=== PATIENT | female | born 1970 | race Caucasian/White ===

== ENCOUNTER → 2018-01-20 | Outpatient (CLI) | payer BC, OTHER | LOC: LAB 22:32 | PROVIDERS: ATTEND Surgery | DX: C50.912 Malignant neoplasm of unspecified site of left female breast (principal) | CPT/HCPCS: 88305; 88341; 88342 ==

== ENCOUNTER 2018-03-22 09:59 | Day surgery (SDC) | payer BC, OTHER ==
[2018-03-15 09:50] LABS: HEMATOCRIT 42.6 % (36.0-47.0); HEMOGLOBIN 14.4 g/dL (12.0-15.5); MEAN CORPUSCULAR HEMOGLOBIN 30.9 pg (27.0-33.4); MEAN CORPUSCULAR HGB CONC 33.8 g/dL (32.0-36.0); MEAN CORPUSCULAR VOLUME 92 fl (80-97); PLATELET COUNT 266 10^3/uL (150-450); RED BLOOD COUNT 4.65 10^6/uL (3.72-5.28); RED CELL DISTRIBUTION WIDTH 12.8 % (11.5-14.0); WHITE BLOOD COUNT 6.5 10^3/uL (4.0-10.5)
[2018-03-15 10:14] LABS: ANION GAP 10 (5-19); BLOOD UREA NITROGEN 16 mg/dL (7-20); CALCIUM 10.2 mg/dL (8.4-10.2); CARBON DIOXIDE 29 mmol/L (22-30); CHLORIDE 104 mmol/L (98-107); GLUCOSE 89 mg/dL (75-110); POTASSIUM 5.3 mmol/L (3.6-5.0); SODIUM 143.4 mmol/L (137-145)
[~2018-03-22 09:59] MED LIST: CEFAZOLIN 1 GM/D5W RTU 1 GM/50 ML RTUPB IV PRN; LACTATED RINGERS 1000 ML IV PRN; LIDOCAINE 0.5% INJ-PF (5 MG/ML) 50 ML SDV SUBCUT PRN; LIDOCAINE 4% TRANSPARENT DRESSING 5 GM KIT TP PRN
[2018-03-22] MEDS ORDERED: ONDANSETRON HCL INJ/PF 4 MG/2 ML SDV ONE (10:25)
[2018-03-22] MEDS ORDERED: KETOROLAC TROMETHAMINE 60 MG/2 ML SDV ONE (10:25)
[2018-03-22] MEDS ORDERED: LIDOCAINE 2% INJ-PF (20 MG/ML) 2 ML AMPUL ONE (10:25)
[2018-03-22] MEDS ORDERED: SUCCINYLCHOLINE CHLORIDE INJ 200 MG/10 ML VIAL ONE (10:25)
[2018-03-22] MEDS ORDERED: DEXAMETHASONE SOD PHOSPHATE INJ 4 MG/1 ML VIAL ONE (10:25)
[2018-03-22] MEDS ORDERED: LIDOCAINE 1%/EPINEPHRINE INJ 20 ML VIAL ONE (11:06)
[2018-03-22] MEDS ORDERED: METHYLENE BLUE 50 MG/10 ML AMPULE ONE (11:06)
[2018-03-22] MEDS ORDERED: MICROFIBRILLAR COLLAGEN 1 GM PACK ONE (11:06)
[2018-03-22] MEDS ORDERED: ACETAMINOPHEN 100 ML IV ONE (13:32)
[2018-03-22] MEDS ORDERED: PROPOFOL INJ 200 MG/20 ML VIAL IV ONE (13:32)
[2018-03-22] MEDS ORDERED: MIDAZOLAM 2 MG/2 ML INJ ONE (13:32)
[2018-03-22] MEDS ORDERED: FENTANYL CITRATE INJ/PF 250 MCG/5 ML AMPULE ONE (13:33)
--- NOTE | 2018-03-22 13:42 | RADIOLOGY REPORT (SQ) ---
EXAM DESCRIPTION: NM LYMPHATICS/LYMPH GLANDS COMPLETED DATE/TIME: 03/22/2018 11:47 am REASON FOR STUDY: BREAST CANCER C50.912 MALIGNANT NEOPLASM OF UNSPECIFIED SITE OF LEFT FEMAL COMPARISON: None. RADIONUCLIDE AND DOSE: 620 microcuries TC-99m tilmanocept - [employer]. The route of agent administration: Subcutaneous in the skin. TECHNIQUE: The skin of the left breast was prepped in sterile fashion. The radiopharmaceutical was administered in equally divided doses in the periareolar breast, from the 12 o'clock position to the 6 o'clock position. LIMITATIONS: None. FINDINGS: Images demonstrate activity at the injection site. There is migration of activity towards the left axilla IMPRESSION: ADMINISTRATION OF RADIOPHARMACEUTICAL FOR SENTINEL LYMPH NODE EVALUATION. TECHNICAL DOCUMENTATION: JOB ID: [id number] [employer]- All Rights Reserved Reading location - IP/workstation name: [email or web address]
[2018-03-22] MEDS ORDERED: MEPERIDINE HCL/PF INJ 25 MG/1 ML DISP.SYRIN IV PRN (14:20)
[2018-03-22] MEDS ORDERED: PROMETHAZINE HCL INJ 25 MG/1 ML VIAL IV PRN ×2 (14:20)
[2018-03-22] MEDS ORDERED: FENTANYL CITRATE INJ/PF 100 MCG/2 ML AMPUL IV PRN ×3 (14:20)
[2018-03-22] MEDS ORDERED: OXYCODONE-ACETAMINOPHEN 5-325 MG TABLET PO PRN ×2 (14:20)
[2018-03-22] MEDS ORDERED: DIPHENHYDRAMINE HCL 50 MG/ML VIAL IV PRN (14:20)
[2018-03-22] MEDS ORDERED: KETOROLAC TROMETHAMINE INJ/PF 30 MG/1 ML SDV IV PRN (15:42)
--- NOTE | 2018-03-22 15:42 | Operative Report ---
Operative Report DATE OF SURGERY: 03/22/18 PREOPERATIVE DIAGNOSIS: triple negative, poorly differentiated left breast carcinoma POSTOPERATIVE DIAGNOSIS: Same OPERATION: 1. Left mastectomy. 2. [place] lymph node biopsy 7 left axilla using dual mapping technique. 3. Drainage of left chest wall SURGEON: CARL SANDOVAL 1ST ELDERLY COMPANION: ADDIE WISEMAN ANESTHESIA: GA TISSUE REMOVED OR ALTERED: Left breast; sentinel lymph nodes left axilla 7 COMPLICATIONS: None ESTIMATED BLOOD LOSS: 75 cc INTRAOPERATIVE FINDINGS: See below PROCEDURE: The patient was seen in the preop holding area with the left breast was marked. Neoprobe scanning of the left axilla, and review of lymphoscintigraphy suggested successful migration of the nuclide into the left axilla. The patient was taken to the main operating room where general anesthesia was induced. The left arm was abducted left breast was, and the left breast prepped with alcohol, and injected with 2 cc of full-strength blue dye methylene blue 2 o'clock position areolar border intradermally. The left breast was massaged in the left breast and axilla were prepped and draped in sterile fashion Surgical plan and surgical technique were repeated. The findings are significant for a very large breast tumor occupying approximately one half of the left breast lateral to mid aspect. A generous marking was made on the skin for a planned elliptical incision. Superior and inferior skin flaps were now raised after incising the skin with a #10 blade. We took the level of dissection down to the chest wall from the infraclavicular area to the lateral border of the chest wall, serratus anterior muscle inferiorly and peristernal tissue. The breast was taken off of the chest wall with electrocautery. We now had the tail of Telles exposed and mobilized the lateral tissue flap to expose the lower axilla. We commenced to harvest 7 sentinel lymph nodes. All of these nodes were hot and the first 5 were blue as well. Her all Level One in the lower axilla. The first sentinel lymph node had an in vivo count of 2801 and an ex vivo count of 7804, the second lymph node 12,171 ex vivo count 9209, third sentinel lymph node ex vivo count of 4580, for 4 sentinel lymph node 3582 for fifth sentinel lymph node 2861, and the 6 sentinel lymph node 2766 and the seventh 2801. The latter 2 lymph nodes were hot but not blue. All the lymph nodes were medium to small in size and grossly appeared normal limits. A large Servando drain was placed in the inferior skin flap and secured to skin with 2-0 Prolene suture. We trimmed some redundant skin on the superior skin flap, medial aspect. Hemostasis was excellent. The arm was placed in a more anatomic position and the mastectomy incision closed running 2-0 Vicryl suture. Principal incision closed with Dermabond glue. Patient tolerated procedure well, extubated, taken to recovery in stable condition. The physician administrative assistant coordinator, Ms. Mendez, provided assistance during this case by: Assisting with, retracting tissue, instillation of local anesthesia and closure of skin incisions.
--- NOTE | 2018-03-22 15:42 | Discharge Summary ---
Discharge Summary (SDC) - Discharge Final Diagnosis: Left breast cancer Date of Surgery: 03/22/18 Discharge Date: 03/22/18 Condition: Stable Treatment or Instructions: [facility] [address] [place] [id number] Care Instructions Following Your Mastectomy Activities: Resume normal activities when you feel comfortable. It is best to remain as active as possible to speed your recovery. It is common to experience some fatigue after surgery and you may find that short naps are helpful. Avoid strenuous activity such as weight lifting, tennis, etc at your surgical site for two weeks. Perform gentle arm exercises daily and do not favor your operative arm to due increased risk of mobility issues postoperatively. No driving for 7 days after surgery. Do not drive if you are taking pain medication other than Tylenol or Ibuprofen. No swimming, tub baths or soaking in a hot tub for 4 weeks. There are no dietary restrictions. Do not smoke as this impairs wound healing. Surgical Site care: Leave the steri-strips in place. You may shower after 48 hours- washing the wound with soap and water using your hands. Do not scrub the incision. Pat the area dry with a towel. You do not need to recover the wound although some patients find that they feel more comfortable using a light dressing for a few days to absorb any minimal drainage which may occur. Many patients also find that keeping a dressing around the drain exit site is helpful to absorb any drainage which may leak around the tubing. If you use a dressing in this manner change it at least every day. Do not use heating pad or apply an ice pack to the operative site. You may apply deodorant if you are careful to avoid getting it on the wound itself. Empty the bulbs attached to the drain every 12 hours and measure the fluid output separately from each drain. Please also strip each drain each time you empty it to prevent clogging. Keep a record of the output and bring this record with you each time you come to the office for postoperative care. A drain is ready to be removed when its output is 30 mL per 24 hours per drain for 2 consecutive days. Please call the office to inform our staff that you need to come in for drain removal. Medications: Take Toradol 10mg one to tablets every six hours as needed for breakthrough pain. Resume all of your normal prescription medications after your surgery unless instructed otherwise. You may experience constipation after surgery while taking pain medications. If using a narcotic on a regular basis, take a stool softener such as Colace twice a day. It is helpful to stay hydrated by drinking lots of fluids. Walking is also helpful and is good exercise after surgery. If you need extra help, use Milk of Magnesia according to the directions on the package. Follow-up: Call our office at to make a follow-up appointment in 10-14 days. Your doctor will call to discuss the pathology report with you as soon as it is available. Concerns: If you had a sentinel lymph node biopsy with your mastectomy, your urine may have a greenish discoloration. This is normal and will resolve as the blue dye slowly leaves your system. If you notice significant leakage around the drains , this is not normal. The drains may be clogged. Please call our office to come in immediately for the drains to be checked. Some bruising may occur and will go away over time. If you have a fever of 101.5 or greater, chills, redness at the incision site, excessive drainage from your wound or severe pain not relieved by pain medication, call your doctor. A physician is available 24 hours a day 7 days a week in addition to regular office hours. If problems arise after normal office hours please call the hospital at . Please call if you have any questions or concerns. Prescriptions: Ketorolac Tromethamine [Toradol 10 mg Tablet] 10 mg PO Q6HP PRN #20 tablet PRN Reason: Referrals: P[facility] CUEVAS CNM [Primary Care Provider] - Discharge Diet: As Tolerated Discharge Activity: No Lifting Over 10 Pounds, Walk Frequently Report the Following to Your Physician Immediately: Fever over 101 Degrees, Unusual Bleeding, Redness, Drainage-Foul Smelling
[2018-03-22] MEDS: FENTANYL CITRATE INJ/PF 100 MCG/2 ML AMPUL ONE ×2 (15:55→16:05)
[2018-03-22 18:00] VITALS: BP 124/82
== END 2018-03-22 18:00 | disposition home or self-care (01) ==
LOC: OROUT 09:59
PROVIDERS: ATTEND Surgery
DX: C50.912 Malignant neoplasm of unspecified site of left female breast (principal); R01.1 Cardiac murmur, unspecified; Z87.891 Personal history of nicotine dependence
CPT/HCPCS: 36415 ×2; 84132; 85027; 81025; 80048; 88342 ×2; 88307 ×2; 78195; 19307; A9520; J2250; J0690; J1100; J1885; J3010 ×2; J3490 ×3; J0330; J2405; J2704; J0131; Q9968; 1610

== ENCOUNTER 2018-04-26 07:01 | Day surgery (SDC) | payer BC, OTHER ==
[2018-04-24 10:03] LABS: HEMATOCRIT 40.7 % (36.0-47.0); HEMOGLOBIN 13.6 g/dL (12.0-15.5); MEAN CORPUSCULAR HEMOGLOBIN 31.4 pg (27.0-33.4); MEAN CORPUSCULAR HGB CONC 33.5 g/dL (32.0-36.0); MEAN CORPUSCULAR VOLUME 94 fl (80-97); PLATELET COUNT 257 10^3/uL (150-450); RED BLOOD COUNT 4.35 10^6/uL (3.72-5.28); RED CELL DISTRIBUTION WIDTH 13.2 % (11.5-14.0); WHITE BLOOD COUNT 7.7 10^3/uL (4.0-10.5)
[~2018-04-26 07:01] MED LIST changes: +ACETAMINOPHEN 325 MG TABLET PO PRN; +LIDOCAINE 1%/EPINEPHRINE INJ 20 ML VIAL ONE; -LIDOCAINE 4% TRANSPARENT DRESSING 5 GM KIT TP PRN
[2018-04-26] MEDS ORDERED: MIDAZOLAM 2 MG/2 ML INJ ONE (08:29)
[2018-04-26] MEDS ORDERED: FENTANYL CITRATE INJ/PF 100 MCG/2 ML AMPUL ONE (08:29)
[2018-04-26] MEDS ORDERED: PROPOFOL INJ 200 MG/20 ML VIAL IV ONE (08:30)
[2018-04-26] MEDS ORDERED: DIPHENHYDRAMINE HCL 50 MG/ML VIAL IV PRN (09:08)
[2018-04-26] MEDS ORDERED: PROMETHAZINE HCL INJ 25 MG/1 ML VIAL IV PRN ×2 (09:08)
[2018-04-26] MEDS ORDERED: MEPERIDINE HCL/PF INJ 25 MG/1 ML DISP.SYRIN IV PRN (09:08)
[2018-04-26] MEDS ORDERED: FENTANYL CITRATE INJ/PF 100 MCG/2 ML AMPUL IV PRN ×3 (09:08)
[2018-04-26 09:22] LABS: APPEARANCE,URINE CLEAR; BILIRUBIN,URINE NEGATIVE (NEGATIVE); COLOR,URINE YELLOW; GLUCOSE, URINE NEGATIVE (NEGATIVE); KETONES,URINE NEGATIVE (NEGATIVE); LEUKOCYTE ESTERASE,URINE NEGATIVE (NEGATIVE); NITRITE,URINE NEGATIVE (NEGATIVE); PROTEIN,URINE NEGATIVE (NEGATIVE); URINE SPECIFIC GRAVITY 1.016; UROBILINOGEN,URINE NEGATIVE mg/dL (<2.0)
--- NOTE | 2018-04-26 09:34 | Operative Report ---
Operative Report DATE OF SURGERY: 04/26/18 PREOPERATIVE DIAGNOSIS: Triple negative breast cancer status post left mastectomy POSTOPERATIVE DIAGNOSIS: Same OPERATION: 1. Focused ultrasound of the right neck. 2. Ultrasound directed insertion of right catheter with single-chamber infusion port in right subclavian position. 3. Interpretation of intraoperative fluoroscopy SURGEON: CARL SANDOVAL 1ST CANCER PROGRAM COORDINATOR: ADDIE WISEMAN ANESTHESIA: LMAC TISSUE REMOVED OR ALTERED: None COMPLICATIONS: None ESTIMATED BLOOD LOSS: Scant INTRAOPERATIVE FINDINGS: See below PROCEDURE: Informed consent was obtained. The patient was placed in Trendelenburg the right neck and chest wall were exposed, and prepped and draped in a sterile fashion. Surgical plan and surgical timeout discussed. The right neck was anesthetized with 1% lidocaine without epinephrine. Using the variable frequency linear transducer, real time, micro needle and wire were threaded into the right internal jugular vein. A suitable site for placement of the right subclavian port was chosen. Skin anesthetized 1% plain lidocaine and a 3 and half centimeter incision was made centimeters below the right clavicle. Subcutaneous pocket was developed large enough to accommodate a single-chamber port with electrocautery and blunt finger dissection. The catheter was then trimmed the appropriate length, tunneled between the 2 incisions, and attempt to the port with the plastic ring We then switched the micro wire over to a conventional guidewire 0.030 using the micro introducer sheath. The dilator and introducer sheath were threaded over the wire, dilator wire removed, catheter threaded the right internal jugular vein. Strip away sheath was removed leaving the catheter in good position. There was no kinking of the catheter based on fluoroscopic analysis. The tip of the catheter was in the superior vena cava right atrial junction. Catheter aspirated and flushed with heparinized saline. Wounds closed with 2-0 Vicryl suture benzoin Steri-Strips. Patient tolerated procedure well and taken recovery in stable condition.
[2018-04-26] MEDS ORDERED: KETOROLAC TROMETHAMINE 10 MG TABLET PO PRN (09:45)
--- NOTE | 2018-04-26 09:45 | Discharge Summary ---
Discharge Summary (SDC) - Discharge Final Diagnosis: Left breast cancer Date of Surgery: 04/26/18 Discharge Date: 04/26/18 Condition: Stable Treatment or Instructions: WOUND CARE: You may shower in 48 hours. Leave steri strips intact. Warm water and soap may wash over wound, do not scrub. Pat dry. Cover if needed. PAIN MANAGEMENT: Take one Toradol by mouth every six hours as needed for pain. FOLLOW UP: follow up at [facility] in 7-10 days. Call clinic sooner with questions/concerns or if there is swelling, bleeding, redness, drainage, or difficulty breathing. Prescriptions: Ketorolac Tromethamine [Toradol 10 mg Tablet] 10 mg PO Q6HP PRN #20 tablet PRN Reason: Referrals: [facility] C[facility]AS CNM [Primary Care Provider] - Discharge Diet: As Tolerated Discharge Activity: Activity As Tolerated Report the Following to Your Physician Immediately: Shortness of Breath, Fever over 101 Degrees, Unusual Bleeding, Redness, Swelling, Warmth, Increased Soreness, Drainage-Foul Smelling
[2018-04-26 11:24] VITALS: BP 125/74
--- NOTE | 2018-04-26 17:03 | RADIOLOGY REPORT (SQ) ---
EXAM DESCRIPTION: FLUORO/CV PLACEMENT COMPLETED DATE/TIME: 04/26/2018 10:06 am REASON FOR STUDY: PORTACATH PLCMT RT SIDE ASST WITH FLUORO IN OR C50.912 MALIGNANT NEOPLASM OF UNSP ECIFIED SITE OF LEFT FEMAL COMPARISON: None. FLUOROSCOPY TIME: Less than 10 seconds 3 digital radiographic C-arm images saved to PACS. TECHNIQUE: Intra-operative images acquired during surgical procedure to evaluate progress. NUMBER OF IMAGES: 3 C-arm images saved to pac's LIMITATIONS: None. FINDINGS: Intra procedural imaging and fluoro during placement of a right-sided permanent central li ne with the tip in the superior vena cava. Please see the operative report for further details IMPRESSION: Intra procedural imaging and fluoro COMMENT: Quality ID [id number]: Final reports for procedures using fluoroscopy that document radiation exp osure indices, or exposure time and number of fluorographic images (if radiation exposure indices are not available) Please consult full operative report of the attending physician for description of the procedure. TECHNICAL DOCUMENTATION: JOB ID: [id number] [employer]- All Rights Reserved Reading location - IP/workstation name: [email or web address]
== END 2018-04-26 11:25 | disposition home or self-care (01) ==
LOC: OROUT 07:01
PROVIDERS: ATTEND Surgery
DX: C50.912 Malignant neoplasm of unspecified site of left female breast (principal); R01.1 Cardiac murmur, unspecified; Z87.891 Personal history of nicotine dependence; Z01.818 Encounter for other preprocedural examination
CPT/HCPCS: 36561; 36415; 85027; 81025; 81001; 77001; C1752; C1788; J2250; J0690; J3010; J3490; J2704; J1642; 532

== ENCOUNTER → 2018-05-02 | Outpatient (CLI) | payer OTHER ==
--- NOTE | 2018-05-02 12:50 | RADIOLOGY REPORT (SQ) ---
EXAM DESCRIPTION: NM MUGA REST COMPLETED DATE/TIME: 05/02/2018 11:39 am REASON FOR STUDY: ENCTR FOR ANTINEOPLASTIC CHEMOTHERAPY (Z51.11), BREAST CA (C50.412) C50.412 MALIG NEOPLASM OF UPPER-OUTER QUADRANT OF LEFT FEMAL COMPARISON: None. RADIONUCLIDE AND DOSE: 26.0 mCi technetium 99m labeled red blood cells The route of agent administration: Intravenous TECHNIQUE: Following administration of the radionuclide, gated images of the heart are obtained in t hree projections. Left ventricular functional analysis performed. LIMITATIONS: None. FINDINGS: LEFT VENTRICULAR FUNCTION: EJECTION FRACTION: 76%. END-DIASTOLIC VOLUME: 73 mL. END-SYSTOLIC VOLUME: 18 mL. WALL MOTION: No focal wall motion abnormalities. OTHER: No other significant finding. IMPRESSION: NORMAL CARDIAC MUGA STUDY. NORMAL LEFT VENTRICULAR FUNCTION estimated at 76% TECHNICAL DOCUMENTATION: JOB ID: [id number] [employer]- All Rights Reserved Reading location - IP/workstation name: [email or web address]
== END ==
LOC: RAD 09:33
PROVIDERS: ATTEND Internal Medicine Hematology & Oncology
DX: C50.412 Malignant neoplasm of upper-outer quadrant of left female breast (principal); Z51.11 Encounter for antineoplastic chemotherapy
CPT/HCPCS: 78472; A9538; Q9969